=== PATIENT | female | born 1985 | race Caucasian/White ===

== ENCOUNTER 2016-08-07 19:23 | Emergency (ER) | payer BC, OTHER ==
[2016-08-07] MEDS ORDERED: MECLIZINE HCL 25 MG TABLET PO ONE (21:19)
[2016-08-07] MEDS ORDERED: MECLIZINE HCL 25 MG TABLET ONE (21:25)
--- NOTE | 2016-08-07 21:27 | ERNOTE ---
Medical Problem HPI - Narrative Date of Service: 08/07/16 - General Chief Complaint: General Assessment Time Seen by Provider: 08/07/16 21:11 Source: patient Exam Limitations: no limitations - Immun/Allergies/Home Medications Immunizations: IMMUNIZATION HX Immunizations Up to Date Yes History of Influenza Vaccine Yes Allergies/Adverse Reactions: Allergies No Known Allergies Allergy (Verified 08/07/16 19:59) - History of Present History Narrative: Pt. comes in with c/o dizziness, nausea and vomiting for two hours. Pt. denies any recent illness or fevers, CP, SOB, diarrhea, rhinorrhea, sinus congestion, alleviating factors, or aggravating factors. Pt. denies any prehospital treatment but does state that she had some palpitations when the dizziness started. Review of Systems - Review of Systems Constitutional: Present: fatigue, malaise. Absent: fever, chills, weakness EYE: Present: no symptoms reported ENT: Present: no symptoms reported Respiratory: Present: no symptoms reported. Absent: shortness of breath, cough , wheezing Cardiology: Present: palpitations. Absent: chest pain, edema Gastrointestinal/Abdominal: Present: nausea, vomiting. Absent: diarrhea, constipation, abdominal pain Genitourinary: Present: no symptoms reported. Absent: pain, decreased urinary output Musculoskeletal: Present: no symptoms reported. Absent: back pain, joint pain Skin: Present: no symptoms reported. Absent: rash, change in color, change in hair/nails Neurological: Present: dizziness/light-headedness. Absent: headache, numbness, tingling Endocrine: Present: no symptoms reported All Other Systems: All systems neg except as marked - Patient's Past Medical History Patient History - Medical: No pertinent hx LMP (females 10-50): unknown - Social History Living Situations: spouse Psych History: No pertinent hx Smoking Status: Never smoker - Immunizations Immunizations Up to Date: Yes History of Influenza Vaccine: Yes Physical Exam - Physical Exam General Appearance: Present: wd/wn, alert, no apparent distress Eye Exam: Normal inspection: bilateral, PERRL: bilateral, EOMI: bilateral Ears, Nose, Throat: Present: normal ENT inspection, normal pharynx Neck: Present: normal inspection, nontender. Absent: lymphadenopathy (R), lymphadenopathy (L) Respiratory: Present: no respiratory distress, normal breath sounds, no accessory muscle use, chest nontender, lungs clear Cardiovascular/Chest: Present: regular rate, rhythm, no murmur, normal peripheral pulses Gastrointestinal/Abdominal: Present: normal bowel sounds, nontender, nondistended, soft, no organomegaly Back Exam: Present: normal inspection, normal range of motion, no CVA tenderness , no vertebral tenderness Extremity Exam: Present: normal inspection, non-tender, normal range of motion, no edema Neurological Exam: Present: alert, oriented, normal mood/affect, no motor/ sensory deficits, nurses superintendent II-XII nml as tested, normal cerebellar test Skin Exam: Present: normal color, warm/dry. Absent: pallor, skin rash ED Progress - Date and Time Seen: Date and Time: 08/07/16 23:[address] Santos and as all tests are negative this is either BPV or arrythmia so will start on Meclizine and prescribe holter monitor for pt. - Results and Orders Patient's Lab Results:: I have reviewed the patient's lab results. - Vital Signs Patient's Vital Signs:: I have reviewed the patient's vital signs. 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 Please take Meclizine with each episode of dizziness.
[2016-08-07 21:45] LABS: Hematocrit 42.7 % (37.0-47.0); Hemoglobin 14.7 gm/dL (12.5-16.0); Mean Cell Volume 81.5 fl (78-100); Mean Corpuscular Hemoglobin 28.1 pg (27-31); Mean Corpuscular Hgb Conc 34.4 g/dl (32-36); Mean Platelet Volume 9.1 fl (6.0-9.5); Neutrophil # 6.3 K/mm3 (1.3-6.0); Neutrophil % 73.1 % (42-75.0); Platelet Count 289 K/mm3 (150-450); Red Blood Count 5.24 M/mm3 (4.2-5.4); Red Cell Distribution Width 13.4 % (11.5-14.0); White Blood Count 8.7 K/mm3 (4.0-10.5)
[2016-08-07 22:01] LABS: Urine Bilirubin Negative (NEGATIVE); Urine Blood Negative /ul (NEGATIVE); Urine Ketone Negative (NEGATIVE); Urine Nitrite Negative (NEGATIVE); Urine Protein Negative (NEGATIVE); Urine Specific Gravity 1.015 SP.GR. (1.005-1.010); Urine Urobilinogen Normal (NORMAL)
[2016-08-07 22:07] LABS: ALT 17 U/L (19-67); AST 16 U/L (0-48); Albumin * 3.8 gm/dl (3.4-5.0); Alkaline Phosphatase * 106 U/L (50-170); Anion Gap 11.6 mmol/L (6.8-13.8); BUN/Creatinine Ratio 12.2 (9.0-21.6); Bilirubin, Total 0.4 mg/dL (0.0-1.1); Blood Urea Nitrogen 9 mg/dL (3-23); Ca. Corrected For Albumin 8.8 mg/dL (8.4-10.2); Carbon Dioxide 29.5 mmol/L (24-32.6); Chloride 107 mmol/L (97-106); Glucose * 105 mg/dL (70-110); Potassium 4.1 mmol/L (3.4-4.6); Sodium 144 mmol/L (132-142); TSH * 1.286 uIU/mL (0.358-3.74); Troponin I Less than 0.017 ng/ml (0.00-0.10)
[2016-08-07 22:11] LABS: Urine Appearance Clear; Urine Bacteria TRACE; Urine Color Yellow; Urine RBC 0-5 /hpf (0-5); Urine WBC 0-5 /hpf (0-5)
[2016-08-07 22:12] LABS: Urine Other Crystal TRACE /hpf
[2016-08-07] MEDS ORDERED: NORMAL SALINE 1,000 ML IV ONE (22:24)
[2016-08-07] MEDS ORDERED: ONDANSETRON HCL/PF 2 MG/ML VIAL IV ONE (22:45)
[2016-08-07] MEDS ORDERED: ONDANSETRON HCL/PF 2 MG/ML VIAL ONE (22:57)
[2016-08-08 02:57] VITALS: BP 142/80
== END 2016-08-08 00:18 | disposition home or self-care (01) ==
LOC: ER 19:23
DX: R42 Dizziness and giddiness (principal)

== ENCOUNTER 2017-11-09 14:33 | Inpatient (IN) ==
[2017-11-09] MEDS ORDERED: RINGER'S SOLUTION,LACTATED 1,000 ML IV ONE (17:38)
[2017-11-09] MEDS ORDERED: OXYTOCIN/DEXTROSE 5%-WATER 30 UNITS/500 ML BAG IV ONE (17:38)
[2017-11-09] MEDS ORDERED: LIDOCAINE HCL 50 ML VIAL PERI PRN (17:38)
[2017-11-09] MEDS ORDERED: NALOXONE HCL 1 MG/1 ML SYRG IV PRN (20:10)
[2017-11-09] MEDS ORDERED: BUPIVACAINE HCL/PF 30 ML VIAL EP SCH (20:15)
--- NOTE | 2017-11-09 20:53 | ANES ---
Anesthesia Pre Procedure Eval Vitals/Labs: Last Vital Signs Temp 36.2 C 11/09/17 20:00 Pulse 75 11/09/17 20:00 Resp 20 11/09/17 20:00 BP 103/56 11/09/17 20:00 Pulse Ox 97 11/09/17 20:00 HOME MEDICATIONS acetaminophen 325 mg capsule 650 mg PO Q4H PRN cap 09/28/17 [Last Taken Unknown ] aspirin 81 mg chewable tablet 81 mg PO DAILY 09/28/17 [Last Taken 11/08/17] doxylamine succinate 25 mg tablet 25 mg PO HS PRN 09/28/17 [Last Taken 11/08/17] ferrous sulfate 325 mg (65 mg iron) tablet,delayed release 325 mg PO DAILY tab 09/28/17 [Last Taken 11/09/17] marco (Zingiber officinalis) 500 mg capsule 500 mg PO HS cap 09/28/17 [Last Taken 11/08/17] vitamin,calcium,mwepfglu-znmd-nkvmp acid tablet 1 tab PO DAILY [Last Taken 11/08/17] pyridoxine (vitamin B6) 100 mg tablet 100 mg PO HS tab 09/28/17 [Last Taken 03/17] Allergies/Adverse Reactions: Allergies Allergy/AdvReac Type Severity Reaction Status Date / Time No Known Allergies Allergy Verified 10/27/17 09:07 - Planned Procedure Planned Procedure: labor epidural Medication List Reviewed:: Yes Allergies Verified: Yes Medical History (Last Reviewed 11/09/17 @ 20:52 by Gerber Leija CRNA) Anemia affecting Onset Date: ~08/07/17 Alopecia Psoriasis Abnormal Pap smear of cervix Onset Date: ~2011 Hemorrhoids Pre-eclampsia Onset Date: ~2015 Surgical History (Last Reviewed 11/09/17 @ 20:52 by Gerber Leija CRNA) History of colposcopy Onset Date: ~2011 History of wisdom tooth extraction Onset Date: ~2004 Status post colonoscopy Onset Date: ~1997 Family History (Last Reviewed 11/09/17 @ 20:52 by Gerber Leija CRNA) Aunt Breast cancer, Onset Age: 50 Father Alive and well Family/Other Epilepsy Mother Murder Grandfather CVA (cerebral vascular accident) Grandfather Diabetes Prostate cancer Grandmother Heart disease Grandmother Alzheimers disease Sister Alopecia - Anesthesia Assessment and Plan ASA Class: PS, II Anesthesia Type Plan: Epidural
--- NOTE | 2017-11-09 21:14 | ANES ---
Post Anesthesia Assessment - Vital Signs Vitals: Last Vital Signs Temp 36.1 C 11/09/17 21:09 Pulse 73 11/09/17 21:09 Resp 20 11/09/17 21:09 BP 139/67 11/09/17 21:09 Pulse Ox 98 11/09/17 21:09 Airway Patency: Normal - Mental Status Level Of Consciousness: Awake - N/V Assessment Nausea/Vomiting Presence: None Dehydration:: No
--- NOTE | 2017-11-09 21:14 | ANES ---
Anesthesia Procedure Note Procedure Note: ANESTHESIA PROCEDURE NOTE Date of Procedure: 11/09/2017. Time of procedure: 2149. Performed by: Gerber Leija CRNA Energy Audit Advisor: None. Preprocedure diagnosis: Active labor. Post procedure diagnosis: Same. Procedure: Insertion of labor epidural. Indications: The patient is a 31 -year-old female in active labor requesting labor epidural for pain management. Findings: See below. Details of the procedure: The patient was placed in a sitting position. DuraPrep as well as Betadine swabs X3 was applied to the patient's back. Patient was then draped in a sterile fashion. Lidocaine 1% was infiltrated to the skin and subcutaneous tissues at the level of the L3-4 interspace. The epidural space was identified using a 18-gauge Tuohy needle with loss-of- resistance technique. Epidural catheter was inserted to a depth of 10 centimeters at skin. Negative test dose was elicited using 3 mL of 1.5% preservative-free lidocaine plus epinephrine 1 200,000. The epidural catheter was then taped and secured in place. A loading dose of 8 mL of 0.25% preservative-free bupivacaine was administered to the epidural catheter after negative aspiration for blood and CSF. EBL: Minimal. Fluids: N/A. Specimen: N/A. Post procedure condition: The patient tolerated the procedure well. No complications were noted. Thank you for this consultation. Gerber Leija CRNA
[2017-11-09] MEDS: BUPIVACAINE HCL/0.9 % NACL/PF 250 ML EP PRN (21:47)
[2017-11-09] MEDS: DEXTROSE 5%-LACTATED RINGERS 1,000 ML IV PRN (23:45)
[2017-11-10] MEDS: ONDANSETRON HCL/PF 2 MG/ML VIAL IV PRN ×2 (07:59→13:14)
[2017-11-10] MEDS: DEXTROSE 5%-LACTATED RINGERS 1,000 ML IV PRN (08:24)
--- NOTE | 2017-11-10 12:57 | HP ---
Chief Complaint - Chief Complaint Date of Service: 11/10/17 Time of Service: 12:47 Chief Complaint: contractions History of Present Illness: 31 yo at 40 4/7 wks presents to L&D complaining of contractions of worsening intensity. This complicated by anemia, h/o pre-eclampsia, influenza A (), and post-dates. Rh positive Rubella immune GBS negative Medical History (Last Reviewed 11/10/17 @ 12:52 by Santos Stallings DO) Anemia affecting Onset Date: ~08/07/17 Alopecia Psoriasis Abnormal Pap smear of cervix Onset Date: ~2011 Hemorrhoids Pre-eclampsia Onset Date: ~2015 Surgical History: Surgical History (Last Reviewed 11/10/17 @ 12:52 by Santos Stallings DO) History of colposcopy Onset Date: ~2011 History of wisdom tooth extraction Onset Date: ~2004 Status post colonoscopy Onset Date: ~1997 Family History: Family History (Last Reviewed 11/10/17 @ 12:52 by Santos Stallings DO) Aunt Breast cancer, Onset Age: 50 Father Alive and well Family/Other Epilepsy Mother Murder Grandfather CVA (cerebral vascular accident) Grandfather Diabetes Prostate cancer Grandmother Heart disease Grandmother Alzheimers disease Sister Alopecia Social History: Preferred Language Swiss Psych History No pertinent hx Review Of Systems (GEN) - Review of Systems EENTM: Present: No Symptoms Reported Respiratory: Present: No Symptoms Reported Cardiac: Present: No Symptoms Reported Abdominal: Present: No Symptoms Reported Genitourinary: Present: Other - contractions Musculoskeletal: Present: No Symptoms Reported Neurological: Present: No Symptoms Reported Skin: Present: No Symptoms Reported Endocrine: Present: No Symptoms Reported Immunizations: IMMUNIZATION HX Immunizations Up to Date Yes History of Influenza Vaccine Yes Allergies/Adverse Reactions: Allergies Allergy/AdvReac Type Severity Reaction Status Date / Time No Known Allergies Allergy Verified 10/27/17 09:07 Home Medications: HOME MEDICATIONS acetaminophen 325 mg capsule 650 mg PO Q4H PRN cap 09/28/17 [Last Taken Unknown ] aspirin 81 mg chewable tablet 81 mg PO DAILY 09/28/17 [Last Taken 11/08/17] doxylamine succinate 25 mg tablet 25 mg PO HS PRN 09/28/17 [Last Taken 11/08/17] ferrous sulfate 325 mg (65 mg iron) tablet,delayed release 325 mg PO DAILY tab 09/28/17 [Last Taken 11/09/17] marco (Zingiber officinalis) 500 mg capsule 500 mg PO HS cap 09/28/17 [Last Taken 11/08/17] vitamin,calcium,didkkdtn-ozyn-udjwy acid tablet 1 tab PO DAILY [Last Taken 11/08/17] pyridoxine (vitamin B6) 100 mg tablet 100 mg PO HS tab 09/28/17 [Last Taken 03/17] Exam - Exam Vital Signs: Vital Signs - Last Taken Temp 36.1 C 11/09/17 21:09 Pulse 73 11/09/17 21:09 Resp 20 11/09/17 21:09 BP 139/67 11/09/17 21:09 Pulse Ox 98 11/09/17 21:09 Constitutional: Present: Alert, Oriented x3, Cooperative, No distress ENT Exam: Present: hearing grossly normal Neck: Present: non-tender Breasts: Present: Exam deferred Respiratory: Present: lungs clear, no respiratory distress Cardiovascular/Chest: Present: normal peripheral pulses, regular rate, rhythm, no edema Abdomen: Present: soft, no rebound tenderness /Rectal: Present: Other - 3/50/-2 Extremity: Present: non-tender, no pedal edema, no calf tenderness Skin Exam: Present: normal color, warm/dry, no cyanosis Lymphatic: Present: no adenopathy Neurologic: Present: normal mood/affect, oriented x 3 Eye contact: Present: cooperative, good eye contact, normal speech Thoughts: Present: normal thought pattern Assessment/Plan - Assessment/Plan (1) Labor established Problem: Acute
--- NOTE | 2017-11-10 13:02 | PN ---
Progess Note - Interim Date: 11/10/17 Time: 12:58 Narrative: 11/10/17 12:58 Patient comfortable with epidural AFVSS Ctxs q 2-3 min on pitocin 4 mu/min. FHT 140, reassuring, no decelerations Cvx - posterior rim, -1 station, OP presentation AROM around 0830 this am with moderate meconium Impression: 40 4/7 IUP, protracted labor due to malposition. MSF- moderate. Plan: position changes. Peds notified of mec.
[2017-11-10] MEDS: BUPIVACAINE HCL/0.9 % NACL/PF 250 ML EP PRN (14:24)
[2017-11-10] MEDS ORDERED: RINGER'S SOLUTION,LACTATED 1,000 ML IV PRN (15:46)
--- NOTE | 2017-11-10 17:20 | OR ---
Operative Report - Dictated Report Narrative: Indication: Maternal exhaustion and nonreassuring status Pre Procedure Patient was counseled to the risk, benefits, and alternatives to operative vaginal delivery. All questions were answered. Patient consented to proceed with operative vaginal delivery. heart rate interpretation: baseline 180 bpm with minimal variability , accelerations and occasional decelerations, EFW 4000 g, station +2, Position of head OLIVE, Anesthesia: epidural Cervix was completely dilated and effaced, maternal- size appropriate for application, bladder was emptied Procedure Yee/Luikart forceps easily applied, hinge/lock approximated without difficulty, 2 pulls, advancement in station with each pull, degree of rotation 0 -45 Post Procedure Viable female born at 1617 on 11/10/2016 with Apgars 5 and 9, weighing 4141 g. Cord gases collected, Placenta spontaneously delivered, EBL 300 mL, tight nuchal cord 1, small ecchymosis at the corner of left, no shoulder dystocia Lacerations: Right sulcus and labial laceration with second-degree vaginal laceration repaired with 0 Vicryl and 3-0 Vicryl Rapide. Cord gases pH pCO2 pO2 HCO3 BE Arterial: 7.181 65.2 19.8 23.8 -5.8 Venous: 7.315 39.4 22.1 19.6 -6.1
[2017-11-10] MEDS ORDERED: oxyCODONE HCL/ACETAMINOPHEN 1 TAB TABLET PO PRN ×2 (17:42)
[2017-11-10] MEDS ORDERED: OXYTOCIN/DEXTROSE 5%-WATER 30 UNITS/500 ML BAG IV ONE (17:42)
[2017-11-10] MEDS ORDERED: BENZOCAINE/MENTHOL 81 SPRAY CAN TP PRN (17:42)
[2017-11-10] MEDS ORDERED: HYDROCORTISONE 30 APPL TUBE TP PRN (17:42)
[2017-11-10] MEDS ORDERED: DOXYLAMINE SUCCINATE 25 MG PO PRN (17:42)
[2017-11-10] MEDS ORDERED: BISACODYL 10 MG SUPP.RECT RC PRN (17:42)
[2017-11-10] MEDS ORDERED: SENNOSIDES 8.6 MG TABLET PO PRN (17:42)
[2017-11-10] MEDS ORDERED: GLYCERIN/WITCH HAZEL LEAF 40 APPL BOX TP PRN (17:42)
[2017-11-10] MEDS: DOCUSATE SODIUM 100 MG CAPSULE PO SCH (21:39)
[2017-11-10] MEDS: IBUPROFEN 800 MG TABLET PO PRN (21:40)
[2017-11-11] MEDS: IBUPROFEN 800 MG TABLET PO PRN ×3 (03:46→21:45)
[2017-11-11] MEDS: FERROUS SULFATE 325 MG TABLET PO SCH (09:40)
[2017-11-11] MEDS: DOCUSATE SODIUM 100 MG CAPSULE PO SCH ×2 (09:40→21:46)
[2017-11-11] MEDS: PRENATAL VITS96/IRON FUM/FOLIC 1 TAB TABLET PO SCH ×2 (09:41→21:46)
--- NOTE | 2017-11-11 18:02 | PN ---
Subjective - Date and Time Seen Date: 11/11/17 Time: 17:58 Objective - Vitals Vitals: Last Vital Signs Temp 36.5 C 11/11/17 13:53 Pulse 67 11/11/17 13:53 Resp 18 11/11/17 13:53 BP 101/61 11/11/17 13:53 Pulse Ox 100 11/11/17 13:53 Prolonged decreased bladder sensation from her epidural last p.m. resulting in urinary retention. Trial this afternoon to remove Parrish unsuccessful. Patient was able to feel bladder filling but unable to void. [Lochia wnl] Abdomen - soft, nontender Uterus - [firm, at umbilicus +3] No calf tenderness Impression: day #1 - s/p low forceps delivery for maternal exhaustion and developing chorioamnionitis with nonreassuring tracing. Urinary retention. Plan: Continue catheter for 24 hours otherwise routine care. Cauti Physician Documentation - Urinary Catheter Management Urethral (Parrish) Date of Insertion: 11/11/17 Time of Insertion: 03:00 Date of Removal: 11/10/17 Time of Removal: 16:13 Assessment/Plan - Problems/Diagnosis (1) Labor established Problem: Acute
[2017-11-12] MEDS: IBUPROFEN 800 MG TABLET PO PRN (07:45)
[2017-11-12] MEDS: DOCUSATE SODIUM 100 MG CAPSULE PO SCH ×2 (07:45→09:27)
[2017-11-12] MEDS: FERROUS SULFATE 325 MG TABLET PO SCH ×2 (07:45→09:27)
[2017-11-12 08:16] VITALS: BP 110/69
--- NOTE | 2017-11-12 08:55 | PN ---
Subjective - Date and Time Seen Date: 11/12/17 Time: 08:54 Objective - Vitals Vitals: Last Vital Signs Temp 36.3 C 11/12/17 08:14 Pulse 63 11/12/17 08:14 Resp 16 11/12/17 08:14 BP 110/69 11/12/17 08:14 Pulse Ox 99 11/12/17 08:14 Patient denies complaints. Lochia wnl Abdomen - soft, nontender Uterus - firm, at umbilicus +1 No calf tenderness Impression: day #2 - s/p low forceps delivery. Urinary retention Plan: Routine discharge instructions. Parrish clamp for 2 hours this morning patient not feeling urge, will try again at noon. If unable to void at noon and will discharge home with Aprrish catheter to remove in office in morning. Cauti Physician Documentation - Urinary Catheter Management Urethral (Parrish) Date of Insertion: 11/11/17 Time of Insertion: 03:00 Date of Removal: 11/10/17 Time of Removal: 16:13 Assessment/Plan - Problems/Diagnosis (1) Labor established Problem: Acute
[2017-11-12] MEDS: PRENATAL VITS96/IRON FUM/FOLIC 1 TAB TABLET PO SCH (09:27)
--- NOTE | 2017-11-14 13:31 | PN ---
Progess Note - Interim Date: 11/14/17 Time: 13:31 History for MU Definition: * The number of deliveries resulting in a live the patient experienced prior to current hospitalization * The previous delivery of live twins or any live multiple gestation is considered one live event. *If primagravida or nulliparous is documented select zero for the number of previous live births. Live Events: 1
== END 2017-11-12 14:00 | disposition home or self-care (01) | DRG 775 ==
LOC: OBCLINIC 14:33 → OB 17:20
PROVIDERS: ADMIT Obstetrics & Gynecology; ATTEND Obstetrics & Gynecology
CPT/HCPCS: 59025; 88307; J2405